=== PATIENT | female | born 1935 | race Caucasian/White ===

== ENCOUNTER 2024-08-31 20:26 | Inpatient (IN) | payer OTHER ==
[~2024-08-31] VITALS: Ht 154.9 cm; Wt 80.5 kg
[2024-08-31] MEDS ORDERED: DILTIAZEM HCL 25 MG IV ONE (20:52)
[2024-08-31] MEDS: DILTIAZEM HCL 50 MG IV IV ONE (20:57)
[2024-08-31 21:05] LABS: BASOPHILS # (AUTO) 0.1 K/uL (0.0-0.2); BASOPHILS % (AUTO) 1.2 % (0.0-2.0); EOSINOPHILS # (AUTO) 0.1 K/uL (0.0-0.7); EOSINOPHILS % (AUTO) 0.7 % (0.0-6.0); HEMATOCRIT 30 % (33-45); HEMOGLOBIN 9.7 g/dL (11.5-14.8); LYMPHOCYTES # (AUTO) 1.7 K/uL (0.8-4.8); LYMPHOCYTES % (AUTO) 16.3 % (20.0-44.0); MEAN CORPUSCULAR HEMOGLOBIN 30 PG (26.0-33.0); MEAN CORPUSCULAR HGB CONC 32 g/dl (31.0-36.0); MEAN CORPUSCULAR VOLUME 93 fL (82-100); MONOCYTES # (AUTO) 0.6 K/uL (0.1-1.30); MONOCYTES % (AUTO) 5.9 % (2.0-12.0); NEUTROPHILS # (AUTO) 7.8 K/uL (1.8-8.9); NEUTROPHILS % (AUTO) 75.9 % (43.0-81.0); PLATELET COUNT (AUTO) 241 K/uL (150-450); RED BLOOD CELL COUNT(AUTO) 3.24 MIL/uL (4.0-5.2); RED CELL DISTRIBUTION WIDTH 14.9 % (11.5-15.0); WHITE BLOOD COUNT (AUTO) 10.3 K/uL (4.3-11.0)
[2024-08-31 21:10] LABS: CALCIUM, SERUM 8.8 mg/dL (8.5-10.1); CREATININE 2.1 mg/dL (0.6-1.3)
[2024-08-31 21:18] LABS: ALBUMIN 3.4 g/dL (3.4-5.0); BILIRUBIN,DIRECT 0.1 mg/dL (0.0-0.2); BILIRUBIN,TOTAL 0.4 mg/dL (0.2-1.0); TOTAL PROTEIN, SERUM 7.5 g/dL (6.4-8.2)
[2024-08-31 21:19] LABS: LACTIC ACID 1.1 mmol/L (0.4-2.0)
[2024-08-31 21:21] LABS: INR 1.08 (0.91-1.10); PARTIAL THROMBOPLASTIN TIME 32.5 SEC (24.3-34.3); PROTHROMBIN TIME 11.4 SECS (9.2-11.1)
[2024-08-31] MEDS ORDERED: CLON-418 PO (21:50)
[2024-08-31] MEDS ORDERED: SENN8.6T19 PO (21:50)
[2024-08-31] MEDS ORDERED: QUET25TA PO (21:50)
[2024-08-31] MEDS ORDERED: ACET-73 PO (21:50)
[2024-08-31] MEDS ORDERED: DICL100G34 TP (21:50)
[2024-08-31] MEDS ORDERED: GABA-532 PO (21:50)
[2024-08-31] MEDS ORDERED: CYAN10006 IM (21:50)
[2024-08-31] MEDS ORDERED: IBAN150T16 PO (21:50)
[2024-08-31] MEDS ORDERED: METF-881 PO (21:50)
[2024-08-31] MEDS ORDERED: ATOR20TA PO (21:50)
[2024-08-31] MEDS ORDERED: ALLO100T PO (21:50)
[2024-08-31] MEDS ORDERED: APIX2.5T PO (21:50)
[2024-08-31] MEDS ORDERED: CHOL200010 PO (21:50)
[2024-08-31] MEDS ORDERED: AMIO100T4 PO (21:50)
[2024-08-31] MEDS ORDERED: DOCU100C36 PO (21:50)
[2024-08-31] MEDS ORDERED: IRBE150T28 PO (21:50)
[2024-08-31] MEDS ORDERED: DILT120T2 PO (21:50)
[2024-08-31] MEDS ORDERED: MIDODRINE HCL (5MG) 5 MG TABLET PO SCH (22:30)
[2024-08-31 22:33] LABS: ABG BASE EXCESS 0.2 mmol/L (-2.0-3.0); ABG OXYGEN SATURATION 97.5 % (94.0-98.0); ABG PCO2 56.3 mmHg (32.0-45.0); ABG PO2 107.6 mmHg (83.0-108.0); ABG TOTAL HEMOGLOBIN 9.3 G/dL (12.0-16.0); COHb 0.3 % (0.5-1.5); MetHb 0.3 % (0.0-1.5); O2Hb 96.9 % (94.0-97.0); SITE, ABG RIGHT RADIAL
[2024-08-31] MEDS ORDERED: IPRATROPIUM NEB FS 0.5 MG/2.5 ML AMPUL.NEB NEB SCH (23:00)
[2024-08-31] MEDS ORDERED: LEVALBUTEROL HCL NEB 1.25 MG/0.5 ML VIAL.NEB NEB SCH (23:00)
[2024-08-31] MEDS ORDERED: FUROSEMIDE 20 MG/2 ML VIAL IV SCH (23:00)
[2024-08-31] MEDS: NOREPINEPHRINE 8 MG in IV D5W 250ML IV PRN (23:15)
[2024-08-31] MEDS ORDERED: NOREPINEPHRINE 8MG/250ML RTU 250 ML IV ONE (23:20)
[2024-09-01] VITALS (36 sets, daily range): BP systolic 82–163; BP diastolic 38–148; TEMP 97.9–98.4; O2SAT 86–100
[2024-09-01] MEDS: NOREPINEPHRINE 32 MG in IV NS 0.9% 218 ML IV PRN
[2024-09-01 01:10] LABS: APPEARANCE,URINE CLEAR (CLEAR); BILIRUBIN,URINE NEGATIVE (NEGATIVE); BLOOD, URINE NEGATIVE Ery/uL (NEGATIVE); COLOR,URINE YELLOW (YELLOW); KETONES,URINE NEGATIVE (NEGATIVE); LEUKOCYTE ESTERASE ,URINE NEGATIVE (NEGATIVE); NITRITE, URINE NEGATIVE (NEGATIVE); PH,URINE 5.5 (5.0-8.0); PROTEIN,URINE 2+ mg/dl (NEGATIVE); UGLUCOSE NEGATIVE (NEGATIVE); UROBILINOGEN,URINE 0.2 EU/dL (0.2)
[2024-09-01 01:27] LABS: BACTERIA,URINE Rare /HPF (None Seen); RBC,URINE 0-2 /HPF (0-2)
[2024-09-01 01:28] LABS: SQUAMOUS EPITHELIAL CELL,UR Moderate /HPF (None Seen); YEAST,URINE Rare /HPF (None Seen)
[2024-09-01 01:29] LABS: URINE AMORPHOUS PHOSPHATES Moderate /HPF (None Seen)
[2024-09-01 01:31] LABS: ADD URINE CULTURE YES
[2024-09-01] MEDS ORDERED: NOREPINEPHRINE 8MG/250ML RTU 250 ML IV ONE (05:33)
[2024-09-01 05:39] LABS: BASOPHILS # (AUTO) 0.1 K/uL (0.0-0.2); BASOPHILS % (AUTO) 1.5 % (0.0-2.0); HEMATOCRIT 33 % (33-45); HEMOGLOBIN 10.5 g/dL (11.5-14.8); LYMPHOCYTES # (AUTO) 1.1 K/uL (0.8-4.8); LYMPHOCYTES % (AUTO) 14.7 % (20.0-44.0); MEAN CORPUSCULAR HEMOGLOBIN 30 PG (26.0-33.0); MEAN CORPUSCULAR HGB CONC 32 g/dl (31.0-36.0); MEAN CORPUSCULAR VOLUME 94 fL (82-100); MONOCYTES # (AUTO) 0.8 K/uL (0.1-1.30); MONOCYTES % (AUTO) 10.3 % (2.0-12.0); NEUTROPHILS # (AUTO) 5.5 K/uL (1.8-8.9); NEUTROPHILS % (AUTO) 73.5 % (43.0-81.0); PLATELET COUNT (AUTO) 266 K/uL (150-450); RED BLOOD CELL COUNT(AUTO) 3.49 MIL/uL (4.0-5.2); RED CELL DISTRIBUTION WIDTH 15.7 % (11.5-15.0); WHITE BLOOD COUNT (AUTO) 7.5 K/uL (4.3-11.0)
[2024-09-01 05:45] LABS: CALCIUM, SERUM 9.1 mg/dL (8.5-10.1); CARBON DIOXIDE 29 mmol/L (21-32); CHLORIDE 91 mmol/L (98-107); CREATININE 2.4 mg/dL (0.6-1.3); GLUCOSE 203 mg/dL (74-106); POTASSIUM 5.4 mmol/L (3.5-5.1); SODIUM SERUM 127 mmol/L (136-145); UREA NITROGEN, BLOOD 48 mg/dL (7-18)
[2024-09-01 06:00] LABS: ALANINE AMINOTRANSFERASE 18 U/L (12-78); ALBUMIN 3.7 g/dL (3.4-5.0); ALKALINE PHOSPHATASE 94 U/L (46-116); ASPARTATE AMINOTRANSFERASE 22 U/L (15-37); BILIRUBIN,TOTAL 0.3 mg/dL (0.2-1.0); TOTAL PROTEIN, SERUM 8.1 g/dL (6.4-8.2)
[2024-09-01] MEDS: SODIUM POLYSTYRENE SULFONATE 15 G/60 ML BOTTLE PO ONE ×2 (07:00→18:40)
[2024-09-01] MEDS ORDERED: MIDODRINE HCL (5MG) 5 MG TABLET PO PRN (07:00)
[2024-09-01] MEDS ORDERED: DEXTROSE 50%-WATER 50 ML DISP.SYRIN IV PRN (07:00)
[2024-09-01] MEDS: METOPROLOL TARTRATE 25 MG TABLET PO SCH (07:49)
[2024-09-01] MEDS: LEVALBUTEROL HCL NEB 1.25 MG/0.5 ML VIAL.NEB NEB SCH (07:51)
[2024-09-01] MEDS: IPRATROPIUM NEB FS 0.5 MG/2.5 ML AMPUL.NEB NEB SCH (07:52)
[2024-09-01 08:03] LABS: ABG BASE EXCESS -0.2 mmol/L (-2.0-3.0); ABG OXYGEN SATURATION 99.5 % (94.0-98.0); ABG PCO2 53.8 mmHg (32.0-45.0); ABG PO2 167.9 mmHg (83.0-108.0); ABG TOTAL HEMOGLOBIN 9.9 G/dL (12.0-16.0); COHb 0.9 % (0.5-1.5); MetHb 0.3 % (0.0-1.5); O2Hb 98.3 % (94.0-97.0); SITE, ABG ALINE
[2024-09-01] MEDS: BLOOD SUGAR DIAGNOSTIC 1 EACH STRIP VI SCH (08:34)
[2024-09-01] MEDS: AMIODARONE HCL 200 MG TABLET PO SCH (09:00)
[2024-09-01] MEDS: DICLOFENAC TOPICAL 100 GM TUBE TP SCH (09:00)
[2024-09-01] MEDS ORDERED: GABAPENTIN 100 MG CAPSULE PO SCH (09:00)
[2024-09-01] MEDS ORDERED: FUROSEMIDE 20 MG/2 ML VIAL IV SCH (09:00)
[2024-09-01] MEDS: CHOLECALCIFEROL 1,000 UNIT TABLET (VIT D3) PO SCH (09:24)
[2024-09-01] MEDS: DOCUSATE SODIUM 100 MG CAPSULE PO SCH (09:24)
[2024-09-01] MEDS: SENNOSIDES 8.6 MG TABLET PO SCH (09:24)
[2024-09-01] MEDS: ALLOPURINOL 100 MG TABLET PO SCH (09:29)
[2024-09-01] MEDS: ATORVASTATIN 10 MG TABLET PO SCH (09:30)
[2024-09-01] MEDS: APIXABAN 2.5 MG TABLET PO SCH (09:32)
[2024-09-01] MEDS: FUROSEMIDE 40 MG/4 ML VIAL IV SCH (09:44)
[2024-09-01] MEDS: PIPERACILLIN /TAZOBACTAM 2.25 G in IV D5W 50 ML IV SCH (09:44)
[2024-09-01] MEDS ORDERED: ESTR42.511 VG (10:45)
[2024-09-01] MEDS ORDERED: CYAN-51 PO (10:45)
[2024-09-01] MEDS ORDERED: IRBE75TA11 PO (10:45)
[2024-09-01] MEDS ORDERED: BUME1TAB8 PO (10:45)
[2024-09-01] MEDS ORDERED: DILT-1 PO (10:45)
[2024-09-01] MEDS: *INSULIN REGULAR(HUMULIN R)HUM 100 UNIT/ML VIAL SQ PRN (21:34)
[2024-09-01] MEDS: ZOLPIDEM TARTRATE 10 MG TABLET PO PRN (23:33)
[2024-09-02] VITALS (12 sets, daily range): BP systolic 92–123; BP diastolic 44–74; TEMP 97.9–98.4; O2SAT 93–98
[2024-09-02 07:06] LABS: BASOPHILS # (AUTO) 0.1 K/uL (0.0-0.2); BASOPHILS % (AUTO) 1.4 % (0.0-2.0); HEMATOCRIT 26 % (33-45); HEMOGLOBIN 8.8 g/dL (11.5-14.8); LYMPHOCYTES # (AUTO) 1.5 K/uL (0.8-4.8); LYMPHOCYTES % (AUTO) 33.4 % (20.0-44.0); MEAN CORPUSCULAR HEMOGLOBIN 31 PG (26.0-33.0); MEAN CORPUSCULAR HGB CONC 33 g/dl (31.0-36.0); MEAN CORPUSCULAR VOLUME 92 fL (82-100); MONOCYTES # (AUTO) 0.6 K/uL (0.1-1.30); MONOCYTES % (AUTO) 12.5 % (2.0-12.0); NEUTROPHILS # (AUTO) 2.3 K/uL (1.8-8.9); NEUTROPHILS % (AUTO) 51.7 % (43.0-81.0); PLATELET COUNT (AUTO) 209 K/uL (150-450); RED BLOOD CELL COUNT(AUTO) 2.88 MIL/uL (4.0-5.2); WHITE BLOOD COUNT (AUTO) 4.4 K/uL (4.3-11.0)
[2024-09-02 07:30] LABS: CALCIUM, SERUM 8.2 mg/dL (8.5-10.1); CREATININE 2.3 mg/dL (0.6-1.3); POTASSIUM 3.9 mmol/L (3.5-5.1)
[2024-09-02 09:26] LABS: ABG BASE EXCESS 3.5 mmol/L (-2.0-3.0); ABG OXYGEN SATURATION 92.5 % (94.0-98.0); ABG PH 7.384 (7.350-7.450); ABG TOTAL HEMOGLOBIN 9.9 G/dL (12.0-16.0); COHb 0.3 % (0.5-1.5); MetHb 0.4 % (0.0-1.5); O2Hb 91.9 % (94.0-97.0); SITE, ABG RIGHT RADIAL
[2024-09-02] MEDS: ONDANSETRON HCL/PF 4 MG/2 ML VIAL IV PRN (13:23)
[2024-09-02] MEDS: MECLIZINE HCL 12.5 MG TABLET PO PRN (14:09)
[2024-09-02] MEDS: METOPROLOL TARTRATE 25 MG TABLET PO SCH (16:24)
[2024-09-02] MEDS ORDERED: METOPROLOL TARTRATE 25 MG TABLET PO SCH (17:00)
[2024-09-02] MEDS: ACETAMINOPHEN ES 500 MG TABLET PO PRN (20:36)
[2024-09-03] VITALS (12 sets, daily range): BP systolic 101–133; BP diastolic 43–77; TEMP 97.9–98.6; O2SAT 93–100
[2024-09-03 07:16] LABS: CALCIUM, SERUM 7.7 mg/dL (8.5-10.1); CREATININE 2.3 mg/dL (0.6-1.3); POTASSIUM 3.3 mmol/L (3.5-5.1)
[2024-09-03] MEDS: INSULIN REGULAR, HUMAN 100 UNIT/ML 3 ML VIAL SQ PRN (07:48)
[2024-09-03] MEDS: METOPROLOL TARTRATE 25 MG TABLET PO SCH (09:21)
[2024-09-03] MEDS: AMIODARONE HCL 200 MG TABLET PO SCH (09:22)
[2024-09-03] MEDS: BUMETANIDE (1 MG) 1 MG TABLET PO SCH (09:24)
[2024-09-03] MEDS: POTASSIUM CHLORIDE 20 MEQ TAB.PRT.SR PO ONE (09:49)
[2024-09-03] MEDS: POTASSIUM CHLORIDE 20 MEQ POWDER PACKET PO ONE (10:04)
[2024-09-03] MEDS: MECLIZINE HCL 12.5 MG TABLET PO SCH (10:07)
[2024-09-03] MEDS: IPRATROPIUM NEB FS 0.5 MG/2.5 ML AMPUL.NEB NEB PRN (12:37)
[2024-09-03] MEDS: LEVALBUTEROL HCL NEB 1.25 MG/0.5 ML VIAL.NEB NEB PRN (12:37)
[2024-09-04] VITALS: BP 112/59; TEMP 97.9; O2SAT 99
[2024-09-04] MEDS ORDERED: ACETAMINOPHEN ES 500 MG TABLET ONE (01:19)
[2024-09-04 04:00] VITALS: BP 111/68; TEMP 97.9; O2SAT 100
[2024-09-04 07:20] LABS: CALCIUM, SERUM 8.9 mg/dL (8.5-10.1); CREATININE 1.9 mg/dL (0.6-1.3); MAGNESIUM 1.8 mg/dL (1.8-2.4); POTASSIUM 4.2 mmol/L (3.5-5.1)
[2024-09-04 08:00] VITALS: BP 107/56; TEMP 97.5; O2SAT 98
[2024-09-04] MEDS: METOPROLOL SUCCINATE 50 MG TAB.SR.24H PO SCH (09:00)
[2024-09-04] MEDS: BUMETANIDE (1 MG) 1 MG TABLET PO SCH (09:00)
[2024-09-04] MEDS: DIGOXIN 0.125 MG TABLET PO SCH (10:00)
[2024-09-04 12:00] VITALS: BP 128/83; TEMP 97.9; O2SAT 99
[2024-09-04 16:00] VITALS: BP 107/63; TEMP 98; O2SAT 98
[2024-09-04 20:00] VITALS: BP 123/70; TEMP 97.9; O2SAT 97
[2024-09-05] VITALS: BP 98/79; TEMP 97.9; O2SAT 99
[2024-09-05 04:00] VITALS: BP 137/78; TEMP 97.9; O2SAT 99
[2024-09-05 06:30] LABS: BASOPHILS # (AUTO) 0.1 K/uL (0.0-0.2); BASOPHILS % (AUTO) 1.6 % (0.0-2.0); EOSINOPHILS # (AUTO) 0.2 K/uL (0.0-0.7); EOSINOPHILS % (AUTO) 3.1 % (0.0-6.0); HEMATOCRIT 34 % (33-45); LYMPHOCYTES # (AUTO) 2.2 K/uL (0.8-4.8); LYMPHOCYTES % (AUTO) 36.3 % (20.0-44.0); MEAN CORPUSCULAR HEMOGLOBIN 30 PG (26.0-33.0); MEAN CORPUSCULAR HGB CONC 33 g/dl (31.0-36.0); MEAN CORPUSCULAR VOLUME 92 fL (82-100); MONOCYTES # (AUTO) 0.7 K/uL (0.1-1.30); MONOCYTES % (AUTO) 10.9 % (2.0-12.0); NEUTROPHILS # (AUTO) 2.9 K/uL (1.8-8.9); NEUTROPHILS % (AUTO) 48.1 % (43.0-81.0); PLATELET COUNT (AUTO) 257 K/uL (150-450); RED BLOOD CELL COUNT(AUTO) 3.65 MIL/uL (4.0-5.2); RED CELL DISTRIBUTION WIDTH 14.7 % (11.5-15.0)
[2024-09-05 06:56] LABS: CREATININE 1.9 mg/dL (0.6-1.3); MAGNESIUM 1.7 mg/dL (1.8-2.4); PHOSPHORUS 3.7 mg/dL (2.5-4.9); POTASSIUM 4.2 mmol/L (3.5-5.1)
[2024-09-05 08:05] VITALS: BP 117/74; TEMP 97.7; O2SAT 94
[2024-09-05] MEDS ORDERED: METO50TA7 PO (09:06)
[2024-09-05] MEDS ORDERED: BUME1TAB8 PO (09:06)
[2024-09-05] MEDS ORDERED: MECL-182 PO (09:06)
[2024-09-05] MEDS ORDERED: DIGO125T PO (09:06)
[2024-09-05] MEDS ORDERED: AMIO200T7 PO (09:06)
[2024-09-05] MEDS: Magnesium 1GM/D5W 100ML PREMIX 100 ML IV SCH (09:38)
[2024-09-05 12:00] VITALS: BP 119/63; TEMP 97.9; O2SAT 99
[2024-09-05 16:00] VITALS: BP 121/67; TEMP 97.9; O2SAT 98
[2024-09-30] MEDS ORDERED: CYANOCOBALAMIN 1,000 MCG/ML VIAL IM SCH (09:00)
== END 2024-09-05 17:32 | disposition home health service (06) | DRG 291 ==
LOC: ER 20:33 → ICU 09-01 05:15 → TELE-TD 09-01 22:51 → TELE1 09-02 09:36 → MEDSG1 09-05 09:53
PROVIDERS: ADMIT Internal Medicine; ATTEND Internal Medicine
PROC: 5A09357 Assistance with Respiratory Ventilation, Less than 24 Consecutive Hours, Continuous Positive Airway Pressure (ICD-10-PCS; principal; 2024-09-01)
DX: I50.33 Acute on chronic diastolic (congestive) heart failure (principal); J96.21 Acute and chronic respiratory failure with hypoxia; J96.22 Acute and chronic respiratory failure with hypercapnia; I13.2 Hypertensive heart and chronic kidney disease with heart failure and with stage 5 chronic kidney disease, or end stage renal disease; E87.1 Hypo-osmolality and hyponatremia; N18.5 Chronic kidney disease, stage 5; I42.9 Cardiomyopathy, unspecified; Z66 Do not resuscitate; I48.0 Paroxysmal atrial fibrillation; E78.5 Hyperlipidemia, unspecified; E66.01 Morbid (severe) obesity due to excess calories; Z68.33 Body mass index [BMI] 33.0-33.9, adult; E11.42 Type 2 diabetes mellitus with diabetic polyneuropathy; I34.0 Nonrheumatic mitral (valve) insufficiency; I27.22 Pulmonary hypertension due to left heart disease; I27.81 Cor pulmonale (chronic); R42 Dizziness and giddiness; E11.22 Type 2 diabetes mellitus with diabetic chronic kidney disease; J44.9 Chronic obstructive pulmonary disease, unspecified; E87.6 Hypokalemia; D64.9 Anemia, unspecified; Z79.84 Long term (current) use of oral hypoglycemic drugs; Z79.899 Other long term (current) drug therapy; Z79.01 Long term (current) use of anticoagulants; Z86.73 Personal history of transient ischemic attack (TIA), and cerebral infarction without residual deficits; Z88.1 Allergy status to other antibiotic agents; Z53.20 Procedure and treatment not carried out because of patient's decision for unspecified reasons
CPT/HCPCS: 36415; 36600; 71045-TC; 71250-TC; 80048-TC; 80053-TC; 80076-TC; 81001; 82803-TC; 82962-TC; 83605-TC; 83735-TC; 83935-TC; 84100-TC; 84132-TC; 84300-TC; 85025-TC; 85730-TC; 87040-TC; 87081-TC; 87086-TC; 94660; 94760-TC; 94799-TC; 97110-TC; 97116-TC; 97530-TC; A4223; G0378; J1815; J1938; J2405; J2543; J3475; J3490; J7050; J7060; J8597